=== PATIENT | male | born 1980 | race Two or more races ===

== ENCOUNTER 2019-01-31 14:40 | Inpatient (IN) | payer OTHER ==
[2019-01-31 15:45] VITALS: BMI 30.2
--- NOTE | 2019-01-31 17:00 | HP ---
COWS - Scale Resting Pulse: 0= [place] 80 or Below Sweatin= Chills/Flushing Restless Observation: 1= Difficult to Sit Still Pupil Size: 1= Pupils >than Normal Bone or Joint Aches: 1= Mild Discomfort Runny Nose/ Eye Tearin= None GI Upset > 30mins: 0= None Tremor Observation: 1= Tremor [place], Not Seen Yawning Observation: 1= 1-2x During Session Anxiety or Irritability: 2=Irritable/Anxious Goose Flesh Skin: 0=Smooth Skin COWS Score: 8 CIWA Score Nausea/Vomitin-No Nausea/No Vomiting Muscle Tremors: 2 Anxiety: 3 Agitation: 1-Slight > Activity Paroxysmal Sweats: 2 Orientation: 0-Oriented Tacttile Disturbances: 2-Mild Itch/Numbness/Burn Auditory Disturbances: 0-None Visual Disturbances: 0-None Headache: 0-None Present CIWA-Ar Total Score: 10 - Admission Criteria OASAS Guidelines: Admission for Medically Managed Detox: Requires at least one of the followin. CIWA greater than 12 2. Seizures within the past 24 hours 3. Delirium tremens within the past 24 hours 4. Hallucinations within the past 24 hours 5. Acute intervention needed for co occurring medical disorder 6. Acute intervention needed for co occurring psychiatric disorder 7. Severe withdrawal that cannot be handled at a lower level of care (continued vomiting, continued diarrhea, abnormal vital signs) requiring intravenous medication and/or fluids 8. Admission ROS [facility] Chief Complaint: " I lost my job using percocets and drinking" Allergies/Adverse Reactions: Allergies Allergy/AdvReac Type Severity Reaction Status Date / Time No Known Allergies Allergy Verified 01/31/19 17:00 History of Present Illness: 38 yo male with hx of nicotine, alcohol and percocets is here seeking detox for the first time. Right shoulder pain Denies psychaitric hx Denies suciidal / homicidal ideation or suicide attempt Denies hx of sizures or blackouts Exam Limitations: No Limitations - Ebola screening Have you traveled outside of the country in the last 21 days: No Have you had contact with anyone from an Ebola affected area: No Have you been sick,other than usual withdrawal symptoms: No - Review of Systems Constitutional: Chills, Loss of Appetite, Changes in sleep, Other (fatigue) EENT: reports: No Symptoms Reported Respiratory: reports: No Symptoms reported Cardiac: reports: No Symptoms Reported GI: reports: Poor Appetite, Poor Fluid Intake : reports: No Symptoms Reported Musculoskeletal: reports: Joint Pain Integumentary: reports: No Symptoms Reported Neuro: reports: Numbness (right shoulder chronic) Endocrine: reports: Increased Thirst Hematology: reports: No Symptoms Reported Psychiatric: reports: Orientated x3, Anxious Other Systems: Reviewed and Negative Patient History - Patient Medical History Hx Anemia: No Hx Asthma: No Hx Chronic Obstructive Pulmonary Disease (COPD): No Hx Cancer: No Hx Cardiac Disorders: No Hx Congestive Heart Failure: No Hx Hypertension: No Hx Hypercholesterolemia: No Hx Pacemaker: No HX Cerebrovascular Accident: No Hx Seizures: No Hx Dementia: No Hx Diabetes: No Hx Gastrointestinal Disorders: No Hx Liver Disease: No Hx Genitourinary Disorders: No Hx Sexually Transmitted Disorders: No Hx Renal Disease (ESRD): No Hx Thyroid Disease: No Hx Human Immunodeficiency Virus (HIV): No Hx Hepatitis C: No Hx Depression: No Hx Suicide Attempt: No Hx Bipolar Disorder: No Hx Schizophrenia: No - Patient Surgical History Past Surgical History: No - PPD History Previous Implant?: No Documented Results: Negative w/o proof PPD to be Administered?: Yes - Smoking Cessation Smoking history: Current every day smoker Have you smoked in the past 12 months: Yes Aproximately how many cigarettes per day: 10 Hx Chewing Tobacco Use: No Initiated information on smoking cessation: Yes 'Breaking Loose' booklet given: 01/31/19 - Substance & Tx. History Hx Alcohol Use: Yes Hx Substance Use: Yes Substance Use Type: Alcohol, Opiates Hx Substance Use Treatment: No - Substances Abused Percocets Route: Oral Frequency: Daily Amount used: 16 - 17 10mg tabs Age of first use: 37 (using for six months) Date of Last Use: 01/31/19 alcohol Route: Oral Frequency: Daily Amount used: 4 cups liquor Age of first use: 28 Date of Last Use: 01/29/19 Family Disease History - Family Disease History Family Disease History: Heart Disease: Mother (htn) Admission Physical Exam BHS - Vital Signs Vital Signs: Vital Signs - 24 hr 01/31/19 15:43 Temperature 96.6 F L Pulse Rate 72 Respiratory 18 Rate Blood Pressure 144/56 L - Physical General Appearance: Yes: Nourished, Appropriately Dressed, Sweating, Anxious ( restless) HEENTM: Yes: EOMI, Hearing grossly Normal, Normal ENT Inspection, Normocephalic , Normal Voice, MITCH, Pharynx Normal, Tm's normal, Other (dry mucous membranes) Respiratory: Yes: Chest Non-Tender, Lungs Clear, Normal Breath Sounds, No Respiratory Distress, No Accessory Muscle Use Neck: Yes: Within Normal Limits Breast: Yes: Breast Exam Deferred Cardiology: Yes: Regular Rhythm, Regular Rate Abdominal: Yes: Normal Bowel Sounds, Non Tender, Flat, Soft Genitourinary: Yes: Within Normal Limits Back: Yes: Normal Inspection Musculoskeletal: Yes: full range of Motion, Gait Steady, Pelvis Stable, Back pain Extremities: Yes: Normal Capillary Refill, Normal Inspection, Normal Range of Motion 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: Yes: 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, Fully Oriented, Alert, Motor Strength 5/5, Depressed Affect Integumentary: Yes: Normal Color, Warm, Diaphoresis Lymphatic: Yes: Within Normal Limits - Diagnostic (1) Opioid dependence with withdrawal Current Visit: Yes Status: Acute (2) Alcohol dependence with withdrawal Current Visit: Yes Status: Acute Qualifiers: Complication of substance-induced condition: uncomplicated Qualified Code(s ): F10.230 - Alcohol dependence with withdrawal, uncomplicated (3) Nicotine dependence Current Visit: Yes Status: Acute (4) Insomnia Current Visit: Yes Status: Acute Qualifiers: Insomnia type: unspecified Qualified Code(s): G47.00 - Insomnia, unspecified (5) At risk for dehydration due to poor fluid intake Current Visit: Yes Status: Acute Cleared for Admission [facility] - Detox or Rehab [facility] Level of Care: Medically Managed Detox Regimen/Protocol: Methadone/Valium [facility] Breath Alcohol Content Breath Alcohol Content: 0 Urine Drug Screen - Results Drug Screen Negative: No Urine Drug Screen Results: OPI-Opiates, MET-Methamphetamine, BZO-Benzodiazepines , OXY-Oxycodone Inpatient Rehab Admission - Rehab Decision to Admit Inpatient rehab admission?: No
[2019-01-31] MEDS ORDERED: MAGNESIUM CITRATE 300 ML BOTTLE PO PRN (17:46)
[2019-01-31] MEDS ORDERED: ACETAMINOPHEN 325 MG TABLET (FP) PO PRN ×2 (17:46)
[2019-01-31] MEDS ORDERED: MAGNESIUM HYDROX 2400MG/30ML ORAL SUSPENSION 30 ML CUP PO PRN (17:46)
[2019-01-31] MEDS ORDERED: NICOTINE POLACRILEX 2 MG GUM BUC PRN (17:46)
[2019-01-31] MEDS ORDERED: MELATONIN 5 MG TABLETS PO PRN (17:46)
[2019-01-31] MEDS ORDERED: MENTHOL/PHENOL 1 EACH UD MM PRN (17:46)
[2019-01-31] MEDS ORDERED: IBUPROFEN 400 MG TABLET (FP) PO PRN (17:46)
[2019-01-31] MEDS ORDERED: MAG HYDROX/AL HYDROX/SIMETH 30 ML UNIT-DOSE CUP PO PRN (17:46)
[2019-01-31] MEDS ORDERED: BACLOFEN 10 MG TABLET (FP) PO PRN (17:46)
[2019-01-31] MEDS ORDERED: cloNIDine HCL 0.1 MG TABLET PO PRN (17:46)
[2019-01-31] MEDS ORDERED: traZODone HCL 50 MG TABLET (FP) PO PRN (17:46)
[2019-01-31] MEDS ORDERED: BISMUTH SUBSALICYLATE 524 MG/30 ML UD PO PRN (17:46)
[2019-01-31] MEDS: diazePAM 5 MG TABLET PO PRN (19:49)
[2019-01-31] MEDS: THIAMINE HCL 100 MG TABLET (FP) PO SCH (22:34)
[2019-01-31] MEDS: diazePAM 5 MG TABLET PO SCH (22:34)
[2019-01-31] MEDS ORDERED: METHADONE HCL 10 MG TABLET (FOR DETOX USE ONLY) PO ONE (23:00)
[2019-02-01 05:23] LABS: URINE APPEARANCE CLEAR; URINE BILIRUBIN NEGATIVE (<2.0 mg/dL); URINE COLOR AMBER; URINE GLUCOSE (UA) NEGATIVE (NEGATIVE); URINE KETONE NEGATIVE (NEGATIVE); URINE LEUK ESTERASE NEGATIVE (NEGATIVE); URINE NITRITE NEGATIVE (NEGATIVE); URINE PROTEIN NEGATIVE (NEGATIVE); URINE UROBILINOGEN NEGATIVE mg/dL (0.2-1.0)
[2019-02-01] MEDS: diazePAM 5 MG TABLET PO SCH ×2 (06:48→14:08)
[2019-02-01] MEDS ORDERED: METHADONE HCL 5 MG TABLET (FOR DETOX USE ONLY) PO ONE (10:00)
[2019-02-01 11:00] LABS: HEMATOCRIT 42.1 % (35.4-49); HEMOGLOBIN 14.7 GM/dL (11.7-16.9); MCH 31.7 pg (25.7-33.7); MCHC 34.9 g/dl (32.0-35.9); MEAN CELL VOLUME 90.7 fl (80-96); MEAN PLT VOLUME 7.7 fl (7.5-11.1); PLATELET COUNT 303 K/MM3 (134-434); RBC 4.64 M/mm3 (4.00-5.60); RDW 12.9 % (11.9-15.9); WHITE BLOOD COUNT 9.1 K/mm3 (4.0-10.0)
[2019-02-01] MEDS: PRENATAL VITAMINS W/ FOLIC ACID TABLET (FP) PO SCH (11:00)
[2019-02-01] MEDS: NICOTINE 14 MG/24 HOURS TOPICAL PATCH TD SCH (11:00)
[2019-02-01 11:07] LABS: ALBUMIN 3.5 g/dl (3.4-5.0); ALK PHOS 83 U/L (45-117); ANION GAP 2 MMOL/L (8-16); BILIRUBIN,TOTAL 0.3 mg/dL (0.2-1); BLOOD UREA NITROGEN 9 mg/dL (7-18); CALCIUM 9.1 mg/dL (8.5-10.1); CHLORIDE 106 mmol/L (98-107); CO2 32 mmol/L (21-32); CREATININE 0.9 mg/dL (0.55-1.3); GLUCOSE,RANDOM 94 mg/dL (74-106); SGOT/AST 16 U/L (15-37); SGPT/ALT 50 U/L (13-61); SODIUM 140 mmol/L (136-145); TOT PROT 7.6 g/dl (6.4-8.2)
--- NOTE | 2019-02-01 13:38 | PN ---
[facility] CIWA - CIWA Score Nausea/Vomitin-No Nausea/No Vomiting Muscle Tremors: 2 Anxiety: 2 Agitation: 3 Paroxysmal Sweats: 2 Orientation: 0-Oriented Tacttile Disturbances: 0-None Auditory Disturbances: 0-None Visual Disturbances: 0-None Headache: 0-None Present CIWA-Ar Total Score: 9 [facility] COWS - Scale Resting Pulse: 1= [place] 81-100 Sweatin=Flushed/Facial Moisture Restless Observation: 1= Difficult to Sit Still Pupil Size: 0= Normal to Room Light Bone or Joint Aches: 2= Severe Diffuse Aches Runny Nose/ Eye Tearin= Nasal Congestion GI Upset > 30mins: 0= None Tremor Observation of Outstretched Hands: 1= Tremor [place], Not Seen Yawning Observation: 0= None Anxiety or Irritability: 1=Feels Anxious/Irritable Goose Flesh Skin: 0=Smooth Skin COWS Score: 9 [facility] Progress Note (SOAP) Subjective: sweats mild shakes interrupted sleep body aches anxiety Objective: 02/01/19 13:37 Vital Signs Temperature 98.1 F 02/01/19 13:25 Pulse Rate 99 H 02/01/19 13:25 Respiratory Rate 18 02/01/19 13:25 Blood Pressure 128/83 02/01/19 13:25 O2 Sat by Pulse Oximetry (%) Laboratory Tests 01/31/19 02/01/19 02/01/19 22:59 07:00 07:00 WBC 9.1 RBC 4.64 Hgb 14.7 Hct 42.1 MCV 90.7 MCH 31.7 MCHC 34.9 RDW 12.9 Plt Count 303 MPV 7.7 Sodium 140 Potassium 5.0 Chloride 106 Carbon Dioxide 32 Anion Gap 2 L BUN 9 Creatinine 0.9 Creat Clearance w eGFR > 60 Random Glucose 94 Calcium 9.1 Total Bilirubin 0.3 AST 16 ALT 50 Alkaline Phosphatase 83 Total Protein 7.6 Albumin 3.5 Urine Color Lelo Urine Appearance Clear Urine pH 5.0 Ur Specific [place] 1.028 Urine Protein Negative Urine Glucose (UA) Negative Urine Ketones Negative Urine Blood Negative Urine Nitrite Negative Urine Bilirubin Negative Urine Urobilinogen Negative Ur Leukocyte Esterase Negative aaox3 ambulating no acute distress Assessment: 02/01/19 13:37 withdrawal sx Plan: continue detox increase fluids
--- NOTE | 2019-02-01 14:08 | EKG ---
Test Reason : Blood Pressure : / mmHG Vent. Rate : 084 BPM Atrial Rate : 084 BPM P-R Int : 132 ms QRS Dur : 088 ms QT Int : 398 ms P-R-T Axes : 044 071 010 degrees QTc Int : 470 ms NORMAL SINUS RHYTHM NONSPECIFIC T WAVE ABNORMALITY ABNORMAL ECG NO PREVIOUS ECGS AVAILABLE Confirmed by ISABELLA THOMPSON MD ([id number]) on 02/01/2019 2:07:42 PM Referred By: Confirmed By:ISABELLA THOMPSON MD
[2019-02-01] MEDS: diazePAM 5 MG TABLET PO PRN (16:35)
[2019-02-02] MEDS: diazePAM 5 MG TABLET PO SCH (00:02)
[2019-02-02] MEDS: THIAMINE HCL 100 MG TABLET (FP) PO SCH (00:03)
[2019-02-02] MEDS ORDERED: diazePAM 5 MG TABLET PO SCH (10:00)
[2019-02-02] MEDS ORDERED: METHADONE HCL 10 MG TABLET (FOR DETOX USE ONLY) PO ONE (10:00)
[2019-02-02] MEDS: NICOTINE 14 MG/24 HOURS TOPICAL PATCH TD SCH (10:07)
[2019-02-02] MEDS: PRENATAL VITAMINS W/ FOLIC ACID TABLET (FP) PO SCH (10:07)
--- NOTE | 2019-02-02 11:02 | PN ---
[facility] Progress Note Note: pt states he is feeling so much better and wants to leave. Pt was made aware that he did not complete detox but insists on leaving. Pt signed out AMA.
--- NOTE | 2019-02-02 11:03 | DS ---
[facility] Detox Discharge Summary Admission Date: 01/31/19 - History Present History: Alcohol Dependence, Opioid Dependence - Physical Exam Results Vital Signs: Vital Signs Temperature 97.7 F 02/02/19 06:00 Pulse Rate 74 02/02/19 06:00 Respiratory Rate 18 02/02/19 06:00 Blood Pressure 118/73 02/02/19 06:00 O2 Sat by Pulse Oximetry (%) - Treatment Hospital Course: Discharged Condition Good - Medication Discharge Medications: Ambulatory Orders NK [No Known Home Medication] 01/31/19 - AMA Did Patient Leave Against Medical Advice: Yes (going home. )
[2019-02-02 11:07] VITALS: BP 137/90; PULSE 96; TEMP 98.1
[2019-02-03] MEDS ORDERED: METHADONE HCL 5 MG TABLET (FOR DETOX USE ONLY) PO ONE (06:00)
[2019-02-03] MEDS ORDERED: diazePAM 5 MG TABLET PO SCH (06:00)
== END 2019-02-02 11:10 | disposition left against medical advice (07) | DRG 770 ==
LOC: YASAS 14:40 → Y6N 17:43
PROVIDERS: ADMIT Surgery; ATTEND Surgery
PROC: HZ2ZZZZ Detoxification Services for Substance Abuse Treatment (ICD-10-PCS; principal; 2019-01-31)
DX: F11.23 Opioid dependence with withdrawal (principal); F10.230 Alcohol dependence with withdrawal, uncomplicated; F17.210 Nicotine dependence, cigarettes, uncomplicated; G47.00 Insomnia, unspecified; Z91.89 Other specified personal risk factors, not elsewhere classified; M25.511 Pain in right shoulder
CPT/HCPCS: 36415; 80053; 81003; 85027; 86593; 93005; 93010; J0475

== ENCOUNTER 2024-07-03 22:59 | Inpatient (IN) | payer OTHER ==
[2024-07-03 23:51] VITALS: BMI 34.5
[2024-07-03] MEDS ORDERED: LOPERAMIDE HCL 2 MG CAPSULE PO PRN (23:55)
[2024-07-03] MEDS ORDERED: DICYCLOMINE HCL 10 MG CAPSULE PO PRN (23:55)
[2024-07-03] MEDS ORDERED: BENZOCAINE/MENTHOL (CHLORASEPTIC ) LOZENGE MM PRN (23:55)
[2024-07-03] MEDS ORDERED: NALOXONE (NARCAN) HCL 4 MG/0.1 ML SPRAY NS PRN (23:55)
[2024-07-03] MEDS ORDERED: ACETAMINOPHEN 325 MG TABLET (FP) PO PRN (23:55)
[2024-07-03] MEDS ORDERED: IBUPROFEN 600 MG TABLET (FP) PO PRN (23:55)
[2024-07-03] MEDS ORDERED: POLYETHYLENE GLYCOL (HEALTHYLAX) 3350 17 GM PACKET PO PRN (23:55)
[2024-07-03] MEDS ORDERED: guaiFENesin 600 MG TABLET.ER (FP) PO PRN (23:55)
[2024-07-03] MEDS ORDERED: NICOTINE POLACRILEX 2 MG LOZENGE BC PRN (23:55)
[2024-07-03] MEDS ORDERED: BISMUTH SUBSALICYLATE 524 MG/30 ML PO PRN (23:55)
[2024-07-03] MEDS ORDERED: BENZONATATE 200 MG CAPSULE PO PRN (23:55)
[2024-07-03] MEDS ORDERED: ONDANSETRON *ODT* 4 MG TABLET SL PRN (23:55)
[2024-07-03] MEDS ORDERED: MAGNESIUM HYDROX 2400MG/30ML ORAL SUSPENSION 30 ML CUP PO PRN (23:55)
[2024-07-03] MEDS ORDERED: NALOXONE HCL 0.4 MG/ML VIAL IM PRN (23:55)
[2024-07-03] MEDS ORDERED: MAG HYDROX/AL HYDROX/SIMETH 30 ML UNIT-DOSE CUP PO PRN (23:55)
[2024-07-03] MEDS ORDERED: IBUPROFEN 400 MG TABLET (FP) PO PRN (23:55)
[2024-07-04 00:39] VITALS: RESP 18
[2024-07-04] MEDS ORDERED: METHOCARBAMOL 500 MG TABLET ONE (01:00)
[2024-07-04] MEDS ORDERED: hydrOXYzine PAMOATE 25 MG CAPSULE (FP) PO ONE (01:01)
[2024-07-04] MEDS: METHOCARBAMOL 500 MG TABLET PO PRN (01:04)
[2024-07-04] MEDS: hydrOXYzine PAMOATE 25 MG CAPSULE (FP) PO PRN (01:04)
[2024-07-04 01:36] VITALS: BP 149/90; PULSE 85; TEMP 97.6
[2024-07-04] MEDS ORDERED: MELATONIN 5 MG TABLETS PO ONE (02:18)
[2024-07-04] MEDS ORDERED: methaDONE HCL 10 MG TABLET (FOR DETOX USE ONLY) PO ONE ×2 (02:55→10:00)
[2024-07-04] MEDS ORDERED: cloNIDine HCL 0.1 MG TABLET PO PRN (02:55)
[2024-07-04] MEDS ORDERED: clonazePAM 0.5 MG ODT TABLETS SL PRN (02:59)
[2024-07-04] MEDS ORDERED: NICOTINE 14 MG/24 HOURS TOPICAL PATCH TD SCH (10:00)
[2024-07-04] MEDS ORDERED: PRENATAL VITAMINS W/ FOLIC ACID TABLET (FP) PO SCH (10:00)
[2024-07-04] MEDS ORDERED: MELATONIN 5 MG TABLETS PO SCH (22:00)
[2024-07-04] MEDS ORDERED: THIAMINE 100 MG TABLET PO SCH (22:00)
[2024-07-06] MEDS ORDERED: methaDONE HCL 10 MG TABLET (FOR DETOX USE ONLY) PO ONE (10:00)
[2024-07-08] MEDS ORDERED: methaDONE HCL 10 MG TABLET (FOR DETOX USE ONLY) PO ONE (10:00)
== END 2024-07-04 03:09 | disposition left against medical advice (07) | DRG 770 ==
LOC: YASAS 22:59 → Y3N 07-04 01:17
PROVIDERS: ADMIT Allergy & Immunology; ATTEND Allergy & Immunology
PROC: HZ2ZZZZ Detoxification Services for Substance Abuse Treatment (ICD-10-PCS; principal; 2024-07-04)
DX: F11.23 Opioid dependence with withdrawal (principal); F17.210 Nicotine dependence, cigarettes, uncomplicated; E78.5 Hyperlipidemia, unspecified
CPT/HCPCS: 80305; 80307; 93005; 93010